=== PATIENT | female | born 1955 | race Caucasian/White ===

== ENCOUNTER 2017-07-01 16:04 | Emergency (ER) | payer BC ==
--- NOTE | 2017-07-01 16:18 | EDM.PDOC ---
ED HPI GENERAL MEDICAL PROBLEM - General Chief Complaint: Abdominal Pain Stated Complaint: ABDOMEN PAIN, VOMITING BLOOD Time Seen by Provider: 07/01/17 16:17 Source of Information: Reports: Patient - History of Present Illness INITIAL COMMENTS - FREE TEXT/NARRATIVE: Patient is here for evaluation of acute onset left back and flank pain. She did have one episode of vomiting after this occurred, she feels that the vomiting was related to her pain that she did not feel ill before or after this. She questions if she had some spots of hemoptysis in her vomit. Patient reports that overall she felt very well this morning. She has history of hypertension and hyperlipidemia for which she is on medications. She has a history of PKD, she does follow with nephrology is on the transplant list. Denies any history of renal stones. She denies any amount of water daily, occasionally has soda but had none today. She denies any nausea currently. She states she does not feel ill, has the pain localized. Denies any dysuria or hematuria. Patient follows with nephrology for her PKD. She states that he she had her complete annual workup with them in May which includes ultrasound and abdominal CT. Patient has no smoking history. Left Lower Flank Pain Score (Numeric/FACES): 10 - Related Data Allergies Allergy/AdvReac Type Severity Reaction Status Date / Time sulfamethoxazole Allergy Hives Verified 07/01/17 16:14 [From Bactrim] trimethoprim [From Bactrim] Allergy Hives Verified 07/01/17 16:14 Home Meds: Home Meds Benzonatate [Tessalon Perles] 200 mg PO ASDIRECTED PRN 01/22/16 [History] Cholecalciferol (Vitamin D3) [Vitamin D] 1,000 units PO DAILY 01/22/16 [History] Ezetimibe [Zetia] 10 mg PO DAILY 01/22/16 [History] Fish Oil/[place]-3 Fatty Acids [Fish Oil 1,000 MG] 1,000 mg PO BID 01/22/16 [ History] Hydrochlorothiazide 25 mg PO DAILY 01/22/16 [History] Lisinopril/Hydrochlorothiazide [Lisinopril-Hctz 20-25 mg Tab] 1 tab PO DAILY 02/26 [History] Lisinopril/Hydrochlorothiazide [Lisinopril-Hctz 20-25 mg Tab] 1 tab PO DAILY 02/26 [History] Lutein/Min/Vit C/Vit E Acetate [Ocuvite Lutein] 1 cap PO DAILY 01/22/16 [History ] Multivitamin [Multi-Day Vitamins] 1 tab PO DAILY 01/22/16 [History] Rosuvastatin [Crestor] 20 mg PO DAILY 01/22/16 [History] Ubidecarenone [Co Q-10] 10 mg PO DAILY 01/22/16 [History] amLODIPine [Norvasc] 10 mg PO DAILY 01/22/16 [History] Past Medical History Other HEENT History: allergies, seasonal Cardiovascular History: Reports: High Cholesterol, Hypertension Other Genitourinary History: polycystic kidney Other OB/BYN History: tubal Musculoskeletal History: Reports: Back Pain, Chronic - Past Surgical History GI Surgical History: Reports: Appendectomy Social & Family History - Tobacco Use Smoking Status *Q: Never Smoker - Caffeine Use Caffeine Use: Reports: Soda - Recreational Drug Use Recreational Drug Use: No Drug Use in Last 12 Months: No ED ROS GENERAL - Review of Systems Review Of Systems: See Below Constitutional: Denies: Fever, Chills, Malaise, Weakness, Decreased Appetite Respiratory: Reports: No Symptoms Cardiovascular: Reports: No Symptoms GI/Abdominal: Reports: Abdominal Pain, Nausea, Vomiting. Denies: Diarrhea, Decreased Appetite, Melena : Denies: Dysuria, Frequency, Hematuria, Urgency Skin: Reports: No Symptoms Neurological: Reports: No Symptoms ED EXAM, GI/ABD - Physical Exam Exam: See Below Exam Limited By: No Limitations General Appearance: Alert, WD/WN, Other (Uncomfortable) Neck: Normal Inspection, Supple, Non-Tender Respiratory/Chest: No Respiratory Distress, Lungs Clear, Normal Breath Sounds Cardiovascular: Normal Peripheral Pulses, Regular Rate, Rhythm, No Murmur GI/Abdominal Exam: Normal Bowel Sounds, Soft, Other (No CVA tenderness. Patient not tender on palpation, reports pain is "deeper". ) Neurological: Alert, Oriented Psychiatric: Normal Affect, Normal Mood Course - Vital Signs Last Recorded V/S: Last Vital Signs Temp 99.1 F 07/01/17 18:43 Pulse 73 07/01/17 18:43 Resp 16 07/01/17 18:43 BP 164/89 H 07/01/17 18:43 Pulse Ox 94 L 07/01/17 18:43 - Orders/Labs/Meds Orders: Active Orders 24 hr Category Date Time Status Abdomen 1V Flat [CR] Stat Exams 07/01/17 16:38 Taken Labs: Laboratory Tests 07/01/17 07/01/17 07/01/17 Range/Units 17:09 18:35 18:35 WBC 9.37 (3.98-10.04) K/mm3 RBC 3.86 L (3.98-5.22) M/mm3 Hgb 11.6 (11.2-15.7) gm/L Hct 34.8 (34.1-44.9) % MCV 90.2 (79.4-94.8) fl MCH 30.1 (25.6-32.2) pg MCHC 33.3 (32.2-35.5) g/dl RDW Std Deviation 39.8 (36.4-46.3) fL Plt Count 231 (182-369) K/mm3 MPV 10.7 (9.4-12.3) fl Neutrophils % (Manual) 86 H (40-60) % Band Neutrophils % 0 (0-10) % Lymphocytes % (Manual) 9 L (20-40) % Atypical Lymphs % 0 % Monocytes % (Manual) 5 (2-10) % Eosinophils % (Manual) 0 L (0.7-5.8) % Basophils % (Manual) 0 L (0.1-1.2) Platelet Estimate Adequate Plt Morphology Comment Normal RBC Morph Comment Nor Sodium 140 (136-145) mEq/L Potassium 4.2 (3.5-5.1) mEq/L Chloride 104 (98-107) mEq/L Carbon Dioxide 20 L (21-32) mEq/L Anion Gap 20.2 H (5-15) BUN 78 H (7-18) mg/dL Creatinine 4.1 H (0.55-1.02) mg/dL Est Cr Clr Drug Dosing 15.44 mL/min Estimated GFR (MDRD) 11 (>60) mL/min BUN/Creatinine Ratio 19.0 H (14-18) Glucose 102 (74-106) mg/dL Calcium 8.8 (8.5-10.1) mg/dL Total Bilirubin 0.3 (0.2-1.0) mg/dL AST 18 (15-37) U/L ALT 19 (14-59) U/L Alkaline Phosphatase 123 H (46-116) U/L C-Reactive Protein < 0.2 (<1.0) mg/dL Total Protein 7.2 (6.4-8.2) g/dl Albumin 3.6 (3.4-5.0) g/dl Globulin 3.6 gm/dL Albumin/Globulin Ratio 1.0 (1-2) Urine Color Light yellow (Yellow) Urine Appearance Clear (Clear) Urine pH 6.5 (5.0-8.0) Ur Specific [place] 1.015 (1.005-1.030) Urine Protein 2+ H (Negative) Urine Glucose (UA) Negative (Negative) Urine Ketones Negative (Negative) Urine Occult Blood Negative (Negative) Urine Nitrite Negative (Negative) Urine Bilirubin Negative (Negative) Urine Urobilinogen 0.2 (0.2-1.0) Ur Leukocyte Esterase Negative (Negative) Urine RBC 0-5 (0-5) /hpf Urine WBC 0-5 (0-5) /hpf Ur Epithelial Cells 0-5 (0-5) /hpf Urine Bacteria Rare (FEW) /hpf Urine Mucus Not seen (FEW) /hpf Meds: Medications Discontinued Medications Generic Name Dose Route Start Last Admin Trade Name Freq PRN Reason Stop Dose Admin Al Hydroxide/Mg Hydroxide 30 0 ml 07/01/17 18:17 07/01/17 18:40 ml/ Lidocaine HCl 15 ml PO 07/01/17 18:18 45 ml ONETIME ONE Administration - Re-Assessments/Exams Free Text/Narrative Re-Assessment/Exam: Patient in moderate amount of pain but declines pain medication for now. Will get urinalysis and KUB. 07/01/17 16:51 Urinalysis with 2+ protein but otherwise negative. No hematuria. KUB demonstrates some retained stool especially in the left lower quadrant. She has phleboliths but no nephrolithiasis visualized. She continues to have mild pain, states that she has had constipation before but never pain with it. Will get lab work & give her GI cocktail to see if this changes her pain. On re-exam she has mild LLQ tenderness, she does not have tenderness to any other part of abdomen. Denies nausea, again declines pain medication as she states her pain is now mild. 07/01/17 18:44 WBC 9,370 with 86% neutrophils and no bands. Her creatinine is quite high at 4.1, this is a chronic elevation due to her PKD. She does follow with nephrology. On re-examination patient has very localized tenderness to the left lower quadrant, I do feel that her symptoms are related to stool retention. Recommend colon cleanse with magnesium citrate. Patient is to follow-up with her PCP this week or certainly return to the emergency room if needed. 07/01/17 19:10 07/01/17 19:14 Departure - Departure Time of Disposition: 19:11 Disposition: Home, Self-Care 01 Condition: Good Clinical Impression: Constipation Qualifiers: Constipation type: unspecified constipation type Qualified Code(s): K59.00 - Constipation, unspecified - Discharge Information Referrals: Mckenna Mallory [employer]ER [Primary Care Provider] - Forms: ED Department Discharge Additional Instructions: I recommend a colon cleanse with magnesium citrate. Drink one half bottle tonight and the other half tomorrow. High fiber diet and continue to drink a lot of fluids. Consider daily probiotic such as Florajen. I recommend you follow up with your primary provider within a week or certainly return to the emergency room if needed. - My Orders Last 24 Hours: My Active Orders 07/01/17 16:38 Abdomen 1V Flat [CR] Stat - Assessment/Plan Last 24 Hours: My Active Orders 07/01/17 16:38 Abdomen 1V Flat [CR] Stat
[2017-07-01] MEDS ORDERED: Alum Hydrox/Mag Hydrox/Simeth 30 ML, Lidocaine 2% 15 ML PO ONE ×2 (18:17)
[2017-07-01 18:45] VITALS: BP 164/89
--- NOTE | 2017-07-02 07:23 | CR ---
Abdomen: Supine view of the abdomen was obtained. Comparison: No previous study. Scoliosis and degenerative change is noted within the spine. Calcifications are seen within the pelvis compatible with phleboliths and mild arterial calcification. Bowel gas pattern is normal. No soft tissue abnormality is appreciated. Impression: 1. Incidental findings. Diagnostic code #2
== END 2017-07-01 19:20 | disposition home or self-care (01) ==
LOC: JD.ED 16:04
DX: K59.00 Constipation, unspecified (principal); E78.00 Pure hypercholesterolemia, unspecified; I10 Essential (primary) hypertension; Z88.2 Allergy status to sulfonamides; Z79.899 Other long term (current) drug therapy
CPT/HCPCS: 36415; 74018; 80053; 81001; 85025; 86140; 99284; A9270; 99283

== ENCOUNTER 2020-05-07 11:23 | Emergency (ER) | payer OTHER ==
[2020-05-07 11:58] VITALS: BP 110/66; PULSE 64
--- NOTE | 2020-05-07 12:15 | EDM.PDOC ---
ED HPI GENERAL MEDICAL PROBLEM - General Chief Complaint: Cardiovascular Problem Stated Complaint: LOW BLOOD PRESSURE Time Seen by Provider: 05/07/20 11:51 Source of Information: Reports: Patient History Limitations: Reports: No Limitations, Other (Vital signs in the emergency department reveal a temp of 96.8, pulse of 64, respiratory rate of 12, blood pressure 110/66, pulse ox 97% on room air) - History of Present Illness INITIAL COMMENTS - FREE TEXT/NARRATIVE: 64-year-old female presents to the emergency department with complaints of a near syncopal episode. Patient states she is scheduled to have a kidney transplant tomorrow. She states her wind energy project manager started her on hydralazine and Coreg approximately 2 weeks ago and gave her instructions to take medication up until tomorrow. Patient states she took her normal a.m. medications this morning and about 15 minutes later was sitting on the toilet having a bowel movement when she felt dizzy, clammy, diaphoretic, and like the curtains were closing over her face. She states that immediately after that she checked her blood pressure and it was in the 60s systolic. On presentation to the emergency department the patient's systolic blood pressure is 110. Onset: Today, Sudden Headache Pain Score (Numeric/FACES): 3 - Related Data Allergies Allergy/AdvReac Type Severity Reaction Status Date / Time sulfamethoxazole Allergy Hives Verified 05/07/20 11:51 [From Bactrim] trimethoprim [From Bactrim] Allergy Hives Verified 05/07/20 11:51 Home Meds: Home Meds Benzonatate [Tessalon Perles] 200 mg PO ASDIRECTED PRN 01/22/16 [History] Ezetimibe [Zetia] 10 mg PO DAILY 01/22/16 [History] Fish Oil/[place]-3 Fatty Acids [Fish Oil 1,000 MG] 1,000 mg PO BID 01/22/16 [History] Hydrochlorothiazide 25 mg PO DAILY 01/22/16 [History] Lisinopril/Hydrochlorothiazide [Lisinopril-Hctz 20-25 mg Tab] 20 - 25 mg PO DAILY 01/22/16 [History] Lutein/Min/Vit C/Vit E Acetate [Ocuvite Lutein] 1 cap PO DAILY 01/22/16 [History] Multivitamin [Multi-Day Vitamins] 1 tab PO DAILY 01/22/16 [History] Rosuvastatin [Crestor] 20 mg PO DAILY 01/22/16 [History] Ubidecarenone [Co Q-10] 10 mg PO DAILY 01/22/16 [History] amLODIPine [Norvasc] 10 mg PO DAILY 01/22/16 [History] Isosorbide Dinitrate 20 mg PO TID 05/07/20 [History] carvediloL [Carvedilol] 25 mg PO BID 05/07/20 [History] hydrALAZINE [Apresoline] 50 mg PO TID 05/07/20 [History] Past Medical History HEENT History: Reports: Impaired Vision Other HEENT History: allergies, seasonal, wears eyeglasses. Cardiovascular History: Reports: High Cholesterol, Hypertension Genitourinary History: Reports: Other (See Below) Other Genitourinary History: polycystic kidney, does home dialysis. 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 Social & Family History - Tobacco Use Tobacco Use Status *Q: Never Tobacco User Second Hand Smoke Exposure: No - Caffeine Use Caffeine Use: Reports: Coffee - Recreational Drug Use Recreational Drug Use: No ED ROS GENERAL - Review of Systems Review Of Systems: See Below Constitutional: Reports: Diaphoresis HEENT: Reports: Glasses Respiratory: Reports: No Symptoms Cardiovascular: Reports: Blood Pressure Problem, Lightheadedness. Denies: Chest Pain, Dyspnea on Exertion, Edema, Palpitations, Syncope Endocrine: Reports: No Symptoms GI/Abdominal: Reports: No Symptoms : Reports: No Symptoms Musculoskeletal: Reports: No Symptoms Skin: Reports: No Symptoms Neurological: Reports: No Symptoms Psychiatric: Reports: No Symptoms Hematologic/Lymphatic: Reports: No Symptoms Immunologic: Reports: No Symptoms ED EXAM, GENERAL - Physical Exam Exam: See Below Exam Limited By: No Limitations General Appearance: Alert, WD/WN, No Apparent Distress Eye Exam: Bilateral Eye: PERRL Ears: Normal External Exam, Hearing Grossly Normal Nose: Normal Inspection Throat/Mouth: Normal Inspection, Normal Voice, No Airway Compromise Head: Atraumatic, Normocephalic Neck: Normal Inspection, Supple, Non-Tender Respiratory/Chest: No Respiratory Distress, Lungs Clear, Normal Breath Sounds, No Accessory Muscle Use, Chest Non-Tender Cardiovascular: Normal Peripheral Pulses, Regular Rate, Rhythm, No Edema, Systolic Murmur Peripheral Pulses: 2+: Radial (L), Radial (R) GI/Abdominal: Normal Bowel Sounds, Soft, Non-Tender, No Distention (Female) Exam: Deferred Rectal (Female) Exam: Deferred Back Exam: Normal Inspection, Full Range of Motion Extremities: Normal Inspection, Normal Range of Motion, Non-Tender, No Pedal Edema, Normal Capillary Refill Neurological: Alert, Oriented, Normal Cognition Psychiatric: Normal Affect, Normal Mood Skin Exam: Warm, Dry, Intact, Normal Color, No Rash Lymphatic: No Adenopathy #1 Interpretation EKG Date: 05/07/20 Time: 11:53 Rhythm: NSR Rate (Beats/Min): 63 [place]: Normal P-Wave: Present QRS: Normal Comparison: NA - No Prior EKG EKG Interpretation Comments: Per Dr. Escalante interpretation mild T wave inversion in inferior, anterior and lateral leads, abnormal EKG Course - Vital Signs Text/Narrative:: I have ordered a CBC, CMP, magnesium, troponin, and EKG and a portable chest x- ray on this patient. Last Recorded V/S: Last Vital Signs Temp 96.8 F L 05/07/20 11:45 Pulse 64 05/07/20 11:45 Resp 12 05/07/20 11:45 BP 110/66 05/07/20 11:45 Pulse Ox 97 05/07/20 11:45 - Orders/Labs/Meds Orders: Active Orders 24 hr Category Date Time Status EKG Documentation Completion [RC] STAT Care 05/07/20 11:57 Active CORONAVIRUS COVID-19 BILL [MOLEC] Stat Lab 05/07/20 13:33 Received TROPONIN I [CHEM] Timed Lab 05/07/20 15:30 Ordered Labs: Laboratory Tests 05/07/20 05/07/20 Range/Units 12:31 12:31 WBC 7.81 (3.98-10.04) K/mm3 RBC 3.79 L (3.98-5.22) M/mm3 Hgb 11.7 (11.2-15.7) gm/dl Hct 36.9 (34.1-44.9) % MCV 97.4 H D (79.4-94.8) fl MCH 30.9 (25.6-32.2) pg MCHC 31.7 L (32.2-35.5) g/dl RDW Std Deviation 47.3 H (36.4-46.3) fL Plt Count 203 (182-369) K/mm3 MPV 10.9 (9.4-12.3) fl Neut % (Auto) 79.8 H (34.0-71.1) % Lymph % (Auto) 9.3 L (19.3-51.7) % [place] % (Auto) 5.8 (4.7-12.5) % Eos % (Auto) 4.6 (0.7-5.8) Baso % (Auto) 0.4 (0.1-1.2) % Neut # (Auto) 6.23 H (1.56-6.13) K/mm3 Lymph # (Auto) 0.73 L (1.18-3.74) K/mm3 [place] # (Auto) 0.45 H (0.24-0.36) K/mm3 Eos # (Auto) 0.36 (0.04-0.36) K/mm3 Baso # (Auto) 0.03 (0.01-0.08) K/mm3 Manual Slide Review Normal smear Sodium 145 (136-145) mEq/L Potassium 4.0 (3.5-5.1) mEq/L Chloride 104 (98-107) mEq/L Carbon Dioxide 31 D (21-32) mEq/L Anion Gap 14.0 (5-15) BUN 60 H (7-18) mg/dL Creatinine 6.9 H D (0.55-1.02) mg/dL Est Cr Clr Drug Dosing 8.83 mL/min Estimated GFR (MDRD) 6 (>60) mL/min BUN/Creatinine Ratio 8.7 L (14-18) Glucose 111 (80-115) mg/dL Calcium 8.4 L (8.5-10.1) mg/dL Magnesium 2.1 (1.8-2.4) mg/dl Total Bilirubin 0.3 (0.2-1.0) mg/dL AST 21 (15-37) U/L ALT 21 (14-59) U/L Alkaline Phosphatase 98 (46-116) U/L Troponin I 0.240 H* (0.00-0.056) ng/mL Total Protein 5.8 L (6.4-8.2) g/dl Albumin 2.4 L (3.4-5.0) g/dl Globulin 3.4 gm/dL Albumin/Globulin Ratio 0.7 L (1-2) - Radiology Interpretation Free Text/Narrative:: Portable chest xray radiologist interpretation: 1. Cardiomegaly and minimal pulmonary vascular congestion. - Re-Assessments/Exams Free Text/Narrative Re-Assessment/Exam: 05/07/20 13:26 Labs reveal WBC 7.81, RBC 3.79, sodium 145, potassium 4.0, BUN 60, creatinine 6.9, GFR 6, calcium 8.4, magnesium 2.1, troponin 0 0.240, I have placed a call to [facility] call to speak with them regarding possible transfer to [place] due to the patient's elevated troponin. 05/07/20 14:[address] Doe regarding the patient's elevated troponin she is not concerned with this elevation as she states it is due to the hypotensive episode and the renal failure. She recommends the patient be discharged to home and she would like the patient's hydralazine and Imdur to be discontinued. She request that the patient hold her Coreg until the day after surgery and then begin taking it 12.5 mg twice daily. Will discharge the patient's with these recommendation Departure - Departure Time of Disposition: 14:16 Disposition: Home, Self-Care 01 Condition: Fair Clinical Impression: Hypotensive episode Instructions: Hypotension, [id number] Referrals: Rafael Swenson MD [Primary Care Provider] - Forms: ED Department Discharge Additional Instructions: You were seen in the emergency department with complaints of low blood pressure and nearly passing out this morning. Lab work was essentially unremarkable other than your elevated kidney functions as you are already aware of and an elevated troponin level. I spoke with your wind energy project manager regarding this and she was not concerned regarding the troponin. She request that you discontinue taking the hydralazine and the Imdur. She request that you stop taking your Coreg until the day after surgery. At that time she requests that you start taking your Coreg at 12.5 mg twice daily. She also request that you make a follow-up appointment to see her in 2 weeks time. Should your condition worsen or change please return to the emergency department. Sepsis Event Note (ED) - Evaluation Sepsis Screening Result: No Definite Risk - Focused Exam Vital Signs: Vital Signs Temp Pulse Resp BP Pulse Ox 05/07/20 11:45 96.8 F L 64 12 110/66 97 - My Orders Last 24 Hours: My Active Orders 05/07/20 11:57 EKG Documentation Completion [RC] STAT 05/07/20 13:33 CORONAVIRUS COVID-19 BILL [MOLEC] Stat 05/07/20 15:30 TROPONIN I [CHEM] Timed - Assessment/Plan Last 24 Hours: My Active Orders 05/07/20 11:57 EKG Documentation Completion [RC] STAT 05/07/20 13:33 CORONAVIRUS COVID-19 BILL [MOLEC] Stat 05/07/20 15:30 TROPONIN I [CHEM] Timed
--- NOTE | 2020-05-07 13:31 | CR ---
Chest: Portable view of the chest was obtained. Comparison: No previous chest imaging is available Heart is enlarged. Pulmonary vessels are minimally increased. Lungs otherwise are clear. Bony structure shows chronic rotator cuff tear within the right shoulder. Impression: 1. Cardiomegaly and minimal pulmonary vascular congestion. 2. Bony findings as noted above. Diagnostic code #3
== END 2020-05-07 14:35 | disposition home or self-care (01) ==
LOC: JD.ED 11:23
DX: I95.9 Hypotension, unspecified (principal); I10 Essential (primary) hypertension; E78.00 Pure hypercholesterolemia, unspecified; Z88.2 Allergy status to sulfonamides; Z20.822 Contact with and (suspected) exposure to COVID-19; Z79.899 Other long term (current) drug therapy
CPT/HCPCS: 36415; 71045; 71045-26; 80053; 83735; 84484; 85025; 93005; 93010; 99284; 99285-25; U0002

== ENCOUNTER 2021-12-07 17:01 | Emergency (ER) | payer SELFPAY | END 2021-12-07 18:00 | LOC: JD.ED 17:01 | DX: Z53.21 Procedure and treatment not carried out due to patient leaving prior to being seen by health care provider (principal) ==